=== PATIENT | female | born 1990 | race Asian ===

== ENCOUNTER 2017-06-14 08:18 | Emergency (ER) | payer OTHER ==
[2017-06-14 08:29] VITALS: BMI 31.8
--- NOTE | 2017-06-14 08:59 | PDOC ---
Attending Attestation - Resident Resident Name: Jose Manuel Johnson - ED Attending Attestation I have performed the following: I have examined & evaluated the patient, The case was reviewed & discussed with the resident, I agree w/resident's findings & plan, Exceptions are as noted - HPI HPI: 06/14/17 13:41 26y F presenting with back pain after being struck by a shoping cart at [employer] yesterday. Pt also endorsed feeling dizzy after it happened. Pain seemed worse when she woke up today in the L lower back. no assicated fever/chillls, numbness/tingling/weakness. Pt als onoticed some vaginal bleeding this AM, pt states she had a positive home test last week. labs reviewed here and pt is not pregent pts exam noted for mild parapsinal tenderness in the lumbar region no mdilne tenderness abd soft nontender pt given toradol for pain control . pt feeling improved will [place] chaney fu - Physicial Exam PE: 06/15/17 17:09 see above - Medical Decision Making 06/15/17 17:09 see above
[2017-06-14 09:23] LABS: BASOPHIL 0.6 % (0-2.0); MCH 25.8 pg (25.7-33.7); MEAN CELL VOLUME 78.2 fl (80-96); MEAN PLT VOLUME 7.6 fl (7.5-11.1); NEUTROPHILS 69.5 % (42.8-82.8); PLATELET COUNT 314 K/MM3 (134-434); RDW 12.9 % (11.6-15.6)
--- NOTE | 2017-06-14 09:32 | PDOC ---
History of Present Illness - General Chief Complaint: Vaginal Bleeding Stated Complaint: DIZZINESS/Vaginal bleeding possibly Time Seen by Provider: 06/14/17 08:27 History Source: Patient Exam Limitations: No Limitations - History of Present Illness Travel History: No Initial Comments: 06/14/17 09:21 26F with pmh of chronic anemia on iron supplements and vertigo present to the ED with gross and heavy vaginal bleed since she woke up this am after being accidentally struck by a cart in the lower back with significant force which also triggered her vertigo. The patient took a test last week which was positive. Last menses were April 24, 7 weeks ago. The patient claims the bleeding hasn't stopped. No products of conception noticed. No care as of yet. Patient is [id number] Past History - Past Medical History Allergies/Adverse Reactions: Allergies Allergy/AdvReac Type Severity Reaction Status Date / Time shellfish derived Allergy Verified 06/14/17 08:23 Home Medications: Ambulatory Orders NK [No Known Home Medication] 10/20/16 Anemia: Yes Other medical history: VERTIGO - Surgical History Abdominal Surgery: Yes (ruptured ovarian cyst) - Reproductive History Is Patient Now?: Yes - Psycho/Social/Smoking Cessation Hx Suicidal Ideation: No Smoking History: Never smoked Information on smoking cessation initiated: No Hx Alcohol Use: No Drug/Substance Use Hx: No Substance Use Type: None Abd/GI Specific PMHX - Complaint Specific PMHX Colitis: No Diverticulitis: No Gall Bladder Disease: No Review of Systems - Review of Systems Able to Perform ROS?: Yes Constitutional: No: Chills, Diaphoresis, Fever, Loss of Appetite HEENTM: No: Symptoms Reported, Blurred Vision, Recent change in vision, Ear Discharge Respiratory: No: Symptoms reported, Cough, Orthopnea, Shortness of Breath Cardiac (ROS): Yes: Lightheadedness. No: Symptoms Reported, Syncope ABD/GI: No: Abd. Pain w/ defecation, Constipated, Diarrhea, Rectal Bleeding : No: Symptoms Reported Musculoskeletal: Yes: Back Pain Integumentary: No: Symptoms Reported Neurological: Yes: Headache, Dizziness Hematologic/Lymphatic: Yes: Anemia *Physical Exam - Vital Signs Last Vital Signs Temp Pulse Resp BP Pulse Ox 98.7 F 83 18 131/74 100 06/14/17 08:21 06/14/17 08:21 06/14/17 08:21 06/14/17 08:21 06/14/17 08:21 - Physical Exam General Appearance: Yes: Nourished, Appropriately Dressed HEENT: positive: EOMI, SHIRA Neck: positive: Normal Thyroid. negative: Tender Respiratory/Chest: positive: Normal Breath Sounds. negative: Respiratory Distress Cardiovascular: positive: Regular Rhythm, Regular Rate, S1, S2 Female Pelvic Exam: positive: discharge, vaginal bleeding (external genitalia shows heavy gross blood at the introitus, vaginal vault and posterior fornix. Cervix is pale and swollen with yellowish/clear mucus discharge. Uterus is slightly tender. No mass palpated.) Procedures - Consent Consent obtained: From Patient ED Treatment Course - LABORATORY CBC & Chemistry Diagram: 06/14/17 08:50 06/14/17 08:50 - RADIOLOGY Radiology Studies Ordered: Category Date Time Status US(SINGLE) [US] Stat Ultrasound 06/14/17 08:46 Ordered Medical Decision Making - Medical Decision Making 06/14/17 09:43 26F pmh of anemia, presents with 7week and vaginal bleed following being hit by a cart in lower back. perlvic exam showed heavy gross blood in the posterior fornix and mucous discharge from a swollen closed cervix. ordered type and cross, cbc, cmp beta-HCG and executive vice president of sales ultrasound to r/o . results pending. No identified on HCG or U/S despite last period April 24 PAtient still complains of back pain and headache. Feels a bit better on nsaid. Follow up with PCP or ophtalmologist to r/o pseudomotor cerebri 06/14/17 14:06 *DC/Admit/Observation/Transfer Diagnosis at time of Disposition: Vaginal bleeding, Back pain - Discharge Dispostion Disposition: HOME Admit: No - Patient Instructions Additional Instructions: Follow up with primary doctor.
[2017-06-14 10:01] LABS: ALBUMIN 4.3 g/dl (3.4-5.0); ALK PHOS 69 U/L (45-117); ANION GAP 6 (8-16); BILIRUBIN,TOTAL 0.6 mg/dL (0.2-1.0); CALCIUM 9.1 mg/dL (8.5-10.1); CO2 26 mmol/L (21-32); CREATININE 0.6 mg/dL (0.55-1.02); GLUCOSE,RANDOM 83 mg/dL (74-106); SGOT/AST 15 U/L (15-37); SGPT/ALT 16 U/L (12-78); TOT PROT 8.1 g/dl (6.4-8.2)
[2017-06-14] MEDS ORDERED: ACETAMINOPHEN 325 MG TABLET (FP) PO ONE (10:01)
[2017-06-14] MEDS ORDERED: ACETAMINOPHEN 325 MG TABLET (FP) ONE (11:25)
[2017-06-14 11:57] LABS: URINE APPEARANCE SLCLOUDY; URINE BILIRUBIN NEGATIVE (NEGATIVE); URINE BLOOD 3+ (NEGATIVE); URINE COLOR LTYELLOW; URINE GLUCOSE (UA) NEGATIVE (NEGATIVE); URINE KETONE NEGATIVE (NEGATIVE); URINE LEUK ESTERASE TRACE (NEGATIVE); URINE NITRITE NEGATIVE (NEGATIVE); URINE UROBILINOGEN NEGATIVE mg/dL (0.2-1.0)
[2017-06-14 11:58] LABS: URINE PROTEIN 1+ (NEGATIVE)
[2017-06-14 12:05] LABS: URINE RBC 1853 /hpf (0-3); URINE WBC 5 /hpf (3-5)
[2017-06-14] MEDS ORDERED: KETOROLAC TROMETHAMINE 30 MG/1 ML VIAL IVPUSH ONE (12:11)
[2017-06-14] MEDS ORDERED: KETOROLAC TROMETHAMINE 30 MG/1 ML VIAL ONE (12:27)
[2017-06-14 14:34] VITALS: BP 124/68; PULSE 75; TEMP 98.6
== END 2017-06-14 14:39 | disposition home or self-care (01) ==
LOC: JER 08:18
PROC: 3E0333Z Introduction of Anti-inflammatory into Peripheral Vein, Percutaneous Approach (ICD-10-PCS; principal; 2017-06-14)
DX: N93.9 Abnormal uterine and vaginal bleeding, unspecified (principal); M54.5 Low back pain; W20.8XXA Other cause of strike by thrown, projected or falling object, initial encounter; Y93.89 Activity, other specified; Y92.9 Unspecified place or not applicable; D64.9 Anemia, unspecified
CPT/HCPCS: 36415; 76817-TC; 80053; 81003; 81015; 84702; 84703; 85025; 86850; 86900; 86901; 99283-25

== ENCOUNTER 2017-09-03 08:19 | Emergency (ER) | payer OTHER ==
[2017-09-03 08:23] VITALS: BMI 31.7
--- NOTE | 2017-09-03 08:36 | PDOC ---
History of Present Illness - General Chief Complaint: Psychiatric Stated Complaint: CHEST PAIN, ANXIETY Time Seen by Provider: 09/03/17 08:33 - History of Present Illness Initial Comments: 09/03/17 08:35 Patient is a 27 year old female with PMH significant for depression, vertigo and anemia presenting with sob, chest pain, anxiety and dizziness since morning. Patient states the symptoms started when she arrived at work. Denies any new or inciting events but endorses significant social stressors including the health of her grandfather and similar symptoms in the past, including significant depression, when her grandmother . Chest pain is sharp, left sided, plueurtic, 7/10 and radiates to the back. The pain was proceeded by shortness of breath and palpitations that "felt like her heart was going to break out of her chest". After having the pain, the patient started feeling dizziness with the room is spinning around her but "different" than her normal vertigo. Endorses headache, sore throat, abdominal pain and constipation; denies recent surgeries, long trips, periods of immobility, leg pain, history of DVT. Patient has no history of heart disease. PCP: Tristan Past History - Past Medical History Allergies/Adverse Reactions: Allergies Allergy/AdvReac Type Severity Reaction Status Date / Time shellfish derived Allergy Verified 06/14/17 08:23 Home Medications: Ambulatory Orders NK [No Known Home Medication] 10/20/16 Anemia: Yes - Surgical History Abdominal Surgery: Yes (ruptured ovarian cyst) - Suicide/Smoking/Psychosocial Hx Smoking History: Current every day smoker Number of Cigarettes Smoked Daily: 1 Information on smoking cessation initiated: No Hx Alcohol Use: No Drug/Substance Use Hx: No Substance Use Type: None Review of Systems - Review of Systems Able to Perform ROS?: Yes Comments:: GEN: Denies fever, chills, recent illness HEENTM: Endorses sore throat, changes in vision; Denies neck pain, changes in hearing, ear pain, tinnitus Respiratory: Denies cough, wheezing, shortness of breath Cardiac: Denies chest pain, palpitations, lightheadedness, diaphoresis ABD/GI: Endorses abdominal pain, constipation; Denies nausea, vomiting, diarrhea : Denies dysuria, burning on urination, increased frequency of urination Musculoskeletal: Denies pain and swelling of muscles and joints Integumentary: Denies rashes, bruises Neurological: Endorses LEDEZMA, dizziness; Denies weakness, loss of consciousness, tingling, numbness Hematologic/Lymphatic: Denies anemia, easy bleeding, history of blood clots. Psych: Denies SI/SA All Other Systems Reviewed and Negative Is the patient limited Icelandic proficient: No *Physical Exam - Vital Signs Last Vital Signs Temp Pulse Resp BP Pulse Ox 98.9 F 115 H 19 138/78 99 09/03/17 08:21 09/03/17 08:21 09/03/17 08:21 09/03/17 08:21 09/03/17 08:21 - Physical Exam Comments: GENERAL: AAOx3, nourished and generally well appearing, sad and tearful, NAD HEAD: NCAT EYES: PERRLA, EOMI, sclera anicteric, conjunctiva mildly injected ENT: Auricles normal inspection, hearing grossly normal, nares patent, no nasal discharge, no congestion, oropharynx clear without exudates, MMM NECK: supple, normal ROM, no LAD, no JVD, no masses RESP: speaking in full sentences, lungs CTAB, symmetrical chest expansion, no respiratory distress HEART: tachycardic, regular rhythm, normal S1-S2, no MRG, peripheral pulses normal and equal bilaterally ABDOMEN: soft, NTND, nlBSx4, no guarding, no rebound, no masses MUSCULOSKELETAL: no CVA Tenderness EXTREMITIES: normal inspection, moving all extremities, full ROM, strength 5/5, sensation grossly intact NEUROLOGICAL: CN II-XII grossly intact, normal speech, normal gait, no focal sensorimotor deficits SKIN: warm, dry, normal turgor, no rashes or lesions noted. ED Treatment Course - LABORATORY CBC & Chemistry Diagram: 09/03/17 09:08 09/03/17 09:25 Medical Decision Making - Medical Decision Making 09/03/17 10:42 27 year old female with history of depression, anxiety and significant social stressors presenting with tachycardia, shortness of breath, chest pain, and dizziness for one day Ddx includes but is not limited to ACS, PE, anxiety, panic attack Patient will be evaluate with blood chemistries, cardiac enzymes and then monitored and reassessed in the ED. Patient will be screened for depretion and SI and counselled about outpatient psychiatric followup. Cannot R/O PE by perc due to tachycardia Wells 1.5 -> Low risk, +/- evaluation with d-dimer EKG: Sinus tachy (101), no st-elevation, intervals wnl Patient heartrate significantly improved from triage 09/03/17 11:16 CBC WBC 8.7 K/mm3 (4.0-10.0) 09/03/17 09:08 RBC 4.79 M/mm3 (3.60-5.2) 09/03/17 09:08 Hgb 12.3 GM/dL (10.7-15.3) 09/03/17 09:08 Hct 37.8 % (32.4-45.2) 09/03/17 09:08 MCV 78.9 fl (80-96) L 09/03/17 09:08 MCH 25.6 pg (25.7-33.7) L 09/03/17 09:08 MCHC 32.4 g/dl (32.0-36.0) 09/03/17 09:08 RDW 13.3 % (11.6-15.6) 09/03/17 09:08 Plt Count 313 K/MM3 (134-434) 09/03/17 09:08 MPV 7.7 fl (7.5-11.1) 09/03/17 09:08 Neutrophils % 69.5 % (42.8-82.8) 09/03/17 09:08 Lymphocytes % 23.5 % (8-40) 09/03/17 09:08 Monocytes % 5.9 % (3.8-10.2) 09/03/17 09:08 Eosinophils % 0.5 % (0-4.5) 09/03/17 09:08 Basophils % 0.6 % (0-2.0) 09/03/17 09:08 Reviewed and non concerning CMP Sodium 138 mmol/L (136-145) 09/03/17 09:25 Potassium 3.9 mmol/L (3.5-5.1) 09/03/17 09:25 Chloride 104 mmol/L (98-107) 09/03/17 09:25 Carbon Dioxide 24 mmol/L (21-32) 09/03/17 09:25 Anion Gap 10 (8-16) 09/03/17 09:25 BUN 14 mg/dL (7-18) 09/03/17 09:25 Creatinine 0.5 mg/dL (0.55-1.02) L 09/03/17 09:25 Creat Clearance w eGFR > 60 (>60) 09/03/17 09:25 Random Glucose 69 mg/dL (74-106) L 09/03/17 09:25 Calcium 8.6 mg/dL (8.5-10.1) 09/03/17 09:25 Total Bilirubin 0.6 mg/dL (0.2-1.0) 09/03/17 09:25 AST 13 U/L (15-37) L 09/03/17 09:25 ALT 17 U/L (12-78) 09/03/17 09:25 Alkaline Phosphatase 67 U/L (45-117) 09/03/17 09:25 Creatine Kinase 89 IU/L (26-192) 09/03/17 09:25 Troponin I < 0.02 ng/ml (0.00-0.05) 09/03/17 09:25 Total Protein 7.8 g/dl (6.4-8.2) 09/03/17 09:25 Albumin 4.0 g/dl (3.4-5.0) 09/03/17 09:25 Reassuring cardiac enzymes Glucose consistent with patient claim of not eating today Urine Test Results Urine Color Yellow 09/03/17 09:08 Urine Appearance Slcloudy 09/03/17 09:08 Urine pH 6.0 (5.0-8.0) 09/03/17 09:08 Urine Protein Negative (NEGATIVE) 09/03/17 09:08 Urine Glucose (UA) Negative (NEGATIVE) 09/03/17 09:08 Urine Ketones Negative (NEGATIVE) 09/03/17 09:08 Urine Blood Negative (NEGATIVE) 09/03/17 09:08 Urine Nitrite Negative (NEGATIVE) 09/03/17 09:08 Urine Bilirubin Negative (NEGATIVE) 09/03/17 09:08 Non concerning 09/03/17 11:19 Repeat vitals were reassuring and wnl I discussed the results of testing with the patient and the importance of managing stress in her life. Provided some suggestions such as having someone she felt comfortable talking with, improvements in her diet, exercise and the use of mindfulness. I also instructed her to call her PCP tomorrow to discuss possible treatment for her depression and to request a referral for outpatient psychiatric therapy. Patient acknowledged her understanding and voiced agreement with this plan. She states that she is not currently having any thoughts of hurting herself or anyone else and promised me she would return to the ED if she started having any of these thoughts. *DC/Admit/Observation/Transfer Diagnosis at time of Disposition: Anxiety and depression - Discharge Dispostion Disposition: HOME Condition at time of disposition: Improved Admit: No - Referrals Referrals: STAFF,NOT ON [Primary Care Provider] - - Patient Instructions Printed Discharge Instructions: DI for Depression -- Adult, DI for Anxiety -- Adult Additional Instructions: Please call your doctor at the [facility] today and make an appointment for tomorrow. Discuss with them options for treating your depression and anxiety and the possibility of getting a referral to a therapist Please return to the emergency department if you start feeling depressed to the point where you feel life is worthless or you have any thoughts of hurting yourself. If you do not feel safe or are unable to make it to the emergency department please call 911 immediately. Remember that it is important for your health to eat a healthy diet. This can often help with our moods even if we do not feel hungry. Mild exercise can also help with improving mood and reducing stress. I wish you the best and hope things start getting better. - Post Discharge Activity Forms/Work/School Notes: Back to Work
[2017-09-03 09:20] LABS: BASOPHIL 0.6 % (0-2.0); EOSINOPHIL 0.5 % (0-4.5); MCH 25.6 pg (25.7-33.7); MCHC 32.4 g/dl (32.0-36.0); MEAN CELL VOLUME 78.9 fl (80-96); MEAN PLT VOLUME 7.7 fl (7.5-11.1); NEUTROPHILS 69.5 % (42.8-82.8); PLATELET COUNT 313 K/MM3 (134-434); RDW 13.3 % (11.6-15.6); WHITE BLOOD COUNT 8.7 K/mm3 (4.0-10.0)
[2017-09-03] MEDS ORDERED: SODIUM CHLORIDE 1,000 ML IV STA (09:26)
[2017-09-03] MEDS ORDERED: ACETAMINOPHEN 325 MG TABLET (FP) PO ONE (09:28)
--- NOTE | 2017-09-03 10:03 | PDOC ---
Attending Attestation - Resident Resident Name: Abhilash Hernandez - ED Attending Attestation I have performed the following: I have examined & evaluated the patient, The case was reviewed & discussed with the resident, I agree w/resident's findings & plan, Exceptions are as noted - HPI HPI: 09/03/17 09:48 27 yo F h/o depression (5-7 years ago), anxiety who presents with shortness of breath, dizziness and chest pain Has social stressors related to grandfather's recent illness and 3 miscarriages Pt feels short of breath and has had chest pain Pain is sharp, 7/10, Left side, radiating, pleuritic Worse with laying down (+) depression, no SI, no HI 09/03/17 10:06 09/03/17 10:07 - Physicial Exam PE: 09/03/17 10:07 GENERAL: The patient is in no acute distress. LUNGS: Breath sounds equal, clear to auscultation bilaterally. No wheezes, and no crackles. HEART: Tachycardiac, regular rhythm, normal S1 and S2 without murmur ABDOMEN: Soft, nontender - Medical Decision Making 09/03/17 10:08 27-year-old female presented to emergency department with chest pain, shortness of breath in the setting of multiple social stressors and anxiety. Differential diagnosis includes but is not limited to panic attack, anxiety attack,less likely PE Low risk Wells Unable to do PERC score as pt is tachycardiac Will do basic labs and d dimer Will re assess
[2017-09-03 10:16] LABS: URINE APPEARANCE SLCLOUDY; URINE BILIRUBIN NEGATIVE (NEGATIVE); URINE BLOOD NEGATIVE (NEGATIVE); URINE COLOR YELLOW; URINE GLUCOSE (UA) NEGATIVE (NEGATIVE); URINE KETONE NEGATIVE (NEGATIVE); URINE NITRITE NEGATIVE (NEGATIVE); URINE PROTEIN NEGATIVE (NEGATIVE); URINE UROBILINOGEN NEGATIVE mg/dL (0.2-1.0)
[2017-09-03 10:26] LABS: ANION GAP 10 (8-16); CALCIUM 8.6 mg/dL (8.5-10.1); CO2 24 mmol/L (21-32); GLUCOSE,RANDOM 69 mg/dL (74-106)
[2017-09-03 10:29] LABS: BILIRUBIN,TOTAL 0.6 mg/dL (0.2-1.0); CPK 89 IU/L (26-192); CREATININE 0.5 mg/dL (0.55-1.02); SGOT/AST 13 U/L (15-37); SGPT/ALT 17 U/L (12-78); TOT PROT 7.8 g/dl (6.4-8.2)
[2017-09-03 10:37] LABS: ALK PHOS 67 U/L (45-117); TROPONIN I < 0.02 ng/ml (0.00-0.05)
[2017-09-03 11:40] VITALS: BP 124/72; PULSE 74; TEMP 98.3
[2017-09-03 12:41] LABS: URINE LEUK ESTERASE TRACE (NEGATIVE)
--- NOTE | 2017-09-03 22:07 | EKG ---
Test Reason : Blood Pressure : / mmHG Vent. Rate : 101 BPM Atrial Rate : 101 BPM P-R Int : 136 ms QRS Dur : 080 ms QT Int : 354 ms P-R-T Axes : 034 030 040 degrees QTc Int : 459 ms SINUS TACHYCARDIA OTHERWISE NORMAL ECG NO PREVIOUS ECGS AVAILABLE BASELINE ARTIFACT CLINICAL CORRELATION IS RECOMMENDED Confirmed by MADDY VILLARREAL MD ([id number]) on 09/03/2017 10:06:39 PM Referred By: Confirmed By:MADDY VILLARREAL MD
== END 2017-09-03 12:03 | disposition home or self-care (01) ==
LOC: JER 08:19 → SUPCPDRO 08:19 → JER 12:03
PROC: 3E0337Z Introduction of Electrolytic and Water Balance Substance into Peripheral Vein, Percutaneous Approach (ICD-10-PCS; principal; 2017-09-03)
DX: F41.9 Anxiety disorder, unspecified (principal); F32.9 Major depressive disorder, single episode, unspecified; D64.9 Anemia, unspecified; Z91.013 Allergy to seafood
CPT/HCPCS: 36415; 71010-TC; 80053; 81003; 81015; 82550; 84484; 84703; 85025; 93005; 93010; 99284-25

== ENCOUNTER 2017-09-12 15:17 | Inpatient (IN) | payer OTHER ==
[2017-09-12 15:23] VITALS: BMI 31.7
[2017-09-12] MEDS ORDERED: SODIUM CHLORIDE 1,000 ML IV STA (16:25)
[2017-09-12] MEDS ORDERED: ONDANSETRON 4 MG/2 ML VIAL IVPUSH ONE (16:25)
--- NOTE | 2017-09-12 16:29 | PDOC ---
History of Present Illness - General Chief Complaint: Pain, Acute Stated Complaint: ABD PAIN, NAUSEA Time Seen by Provider: 09/12/17 15:55 Past History - Past Medical History Allergies/Adverse Reactions: Allergies Allergy/AdvReac Type Severity Reaction Status Date / Time shellfish derived Allergy Verified 09/12/17 15:19 Home Medications: Ambulatory Orders NK [No Known Home Medication] 10/20/16 Anemia: Yes - Surgical History Abdominal Surgery: Yes (ruptured ovarian cyst) - Suicide/Smoking/Psychosocial Hx Smoking History: Former smoker Have you smoked in the past 12 months: No Number of Cigarettes Smoked Daily: 1 Information on smoking cessation initiated: No Hx Alcohol Use: No Drug/Substance Use Hx: No Substance Use Type: None *Physical Exam - Vital Signs Last Vital Signs Temp Pulse Resp BP Pulse Ox 98.3 F 95 H 19 130/82 98 09/12/17 15:19 09/12/17 15:19 09/12/17 15:19 09/12/17 15:19 09/12/17 15:19
[2017-09-12] MEDS ORDERED: ONDANSETRON 4 MG/2 ML VIAL ONE ×2 (16:34→23:34)
--- NOTE | 2017-09-12 16:49 | PDOC ---
History of Present Illness - General Chief Complaint: Pain, Acute Stated Complaint: ABD PAIN, NAUSEA Time Seen by Provider: 09/12/17 15:55 History Source: Patient Exam Limitations: No Limitations - History of Present Illness Initial Comments: 09/12/17 16:44 27 year old F with pmh of iron deficiency anemia presenting with lower abdominal pain x 2 days. Pain is constant, bilateral, radiating to back, and cramping. Patient endorses chills, nausea, and pain with intercourse. Patient does not use protection. Has not had any hx of std's. Patient denies fever, vomiting, chest pain, sob, dysuria, hematuria, vaginal bleeding, discharge. Allergies: nkda Past surgical history: denies Social history: denies PMD - Dr. Hudson ([employer]) 09/12/17 16:50 Past History - Past Medical History Allergies/Adverse Reactions: Allergies Allergy/AdvReac Type Severity Reaction Status Date / Time shellfish derived Allergy Verified 09/12/17 15:19 Home Medications: Ambulatory Orders Ibuprofen [Motrin -] 600 mg PO QID #28 tablet 09/12/17 Anemia: Yes - Surgical History Abdominal Surgery: Yes (ruptured ovarian cyst) - Suicide/Smoking/Psychosocial Hx Smoking History: Former smoker Have you smoked in the past 12 months: No Number of Cigarettes Smoked Daily: 1 Information on smoking cessation initiated: No Hx Alcohol Use: No Drug/Substance Use Hx: No Substance Use Type: None Review of Systems - Review of Systems Able to Perform ROS?: Yes Comments:: 09/12/17 16:49 GENERAL/CONSTITUTIONAL: No fever or chills. No weakness. HEAD, EYES, EARS, NOSE AND THROAT: No change in vision. No ear pain or discharge. No sore throat. CARDIOVASCULAR: No chest pain or shortness of breath RESPIRATORY: No cough, wheezing, or hemoptysis. GASTROINTESTINAL: + nausea, No vomiting, diarrhea or constipation. +abdominal pain, +pain upon intercourse GENITOURINARY: No dysuria, frequency, or change in urination. MUSCULOSKELETAL: No joint or muscle swelling or pain. No neck or back pain. SKIN: No rash NEUROLOGIC: No headache, vertigo, loss of consciousness, or change in strength/ sensation. ENDOCRINE: No increased thirst. No abnormal weight change HEMATOLOGIC/LYMPHATIC: No anemia, easy bleeding, or history of blood clots. ALLERGIC/IMMUNOLOGIC: No hives or skin allergy. *Physical Exam - Vital Signs Last Vital Signs Temp Pulse Resp BP Pulse Ox 98.3 F 95 H 19 130/82 98 09/12/17 15:19 09/12/17 15:19 09/12/17 15:19 09/12/17 15:19 09/12/17 15:19 - Physical Exam Comments: 09/12/17 16:49 GENERAL: Awake, alert, and fully oriented, in no acute distress HEAD: No signs of trauma, normocephalic, atraumatic EYES: PERRLA, EOMI, sclera anicteric, conjunctiva clear ENT: Auricles normal inspection, hearing grossly normal, nares patent, oropharynx clear without exudates. Moist mucosa NECK: Normal ROM, supple, no lymphadenopathy, JVD, or masses LUNGS: No distress, speaks full sentences, clear to auscultation bilaterally HEART: Regular rate and rhythm, normal S1 and S2, no murmurs, rubs or gallops, peripheral pulses normal and equal bilaterally. ABDOMEN: Soft, +suprapubic tenderness, +rlq and epigastric tenderness, normoactive bowel sounds. No guarding, no rebound. No masses EXTREMITIES: Normal inspection, Normal range of motion, no edema. No clubbing or cyanosis. NEUROLOGICAL: Cranial nerves II through XII grossly intact. Normal speech, normal gait, no focal sensorimotor deficits SKIN: Warm, Dry, normal turgor, no rashes or lesions noted. Pelvic: +CMT ED Treatment Course - LABORATORY CBC & Chemistry Diagram: 09/12/17 16:50 09/12/17 16:50 Medical Decision Making - Medical Decision Making 09/12/17 16:50 27 year old F with pmh of iron deficiency anemia presenting with lower abdominal pain x 2 days. Plan: CBC, CMP, Lipase, UA, Ucx, Upreg, sx control, G/C culture 09/12/17 17:27 Upreg +, TVUS pending, Beta HcG pending Pt admitted to Dr. Sandhu *DC/Admit/Observation/Transfer Diagnosis at time of Disposition: Ectopic Qualifiers: Location of ectopic : ovarian Intrauterine status: without intrauterine Laterality: right Qualified Code(s): O00.201 - Right ovarian without intrauterine - Discharge Dispostion Disposition: HOME Condition at time of disposition: Good Admit: Yes - Prescriptions - Patient Instructions
[2017-09-12 16:56] LABS: BASOPHIL 0.5 % (0-2.0); EOSINOPHIL 0.8 % (0-4.5); MCH 25.8 pg (25.7-33.7); MCHC 33.2 g/dl (32.0-36.0); MEAN CELL VOLUME 77.8 fl (80-96); MEAN PLT VOLUME 7.6 fl (7.5-11.1); NEUTROPHILS 59.5 % (42.8-82.8); PLATELET COUNT 312 K/MM3 (134-434); RDW 13.2 % (11.6-15.6); WHITE BLOOD COUNT 10.8 K/mm3 (4.0-10.0)
[2017-09-12 17:18] LABS: ALBUMIN 3.8 g/dl (3.4-5.0); ANION GAP 6 (8-16); BILIRUBIN,TOTAL 0.3 mg/dL (0.2-1.0); CALCIUM 8.2 mg/dL (8.5-10.1); CO2 24 mmol/L (21-32); CREATININE 0.6 mg/dL (0.55-1.02); GLUCOSE,RANDOM 65 mg/dL (74-106); SGOT/AST 12 U/L (15-37); SGPT/ALT 17 U/L (12-78); TOT PROT 7.3 g/dl (6.4-8.2)
[2017-09-12 17:19] LABS: ALK PHOS 68 U/L (45-117)
--- NOTE | 2017-09-12 17:20 | PDOC ---
Attending Attestation - Resident Resident Name: Saroj Forbes - ED Attending Attestation I have performed the following: I have examined & evaluated the patient, The case was reviewed & discussed with the resident, I agree w/resident's findings & plan, Exceptions are as noted - HPI HPI: 09/12/17 17:20 27 y/o F with a PMHx of anemia presents to the ED with constant lower abdominal pain for two days. Patient describes the pain as crampy, and that it radiates to her back. She is currently sexually active, and does not use protection. She has a history of STDs in the past. Denies urinary complaints. Denies vaginal bleeding or discharge. Denies fever, chills, NVD. Denies any other complaints. A complete review of 10 out of 10 review of systems is taken and is negative apart from what is previously mentioned below and in the HPI. - Physicial Exam PE: 09/12/17 17:20 Vitals: Triage Vital signs reviewed General Appearance: no acute distress, well nourished well developed Head: Atraumatic Eyes: Pupils equal reactive round, extraocular movement intact Neck: Supple; No Nucal rigidity Chest Wall: Nontender Cardiac: Regular rate and rhythm, no murmurs, no rubs, no gallops Lungs: Clear to auscultation bilateral, good air movement bilaterally Abdomen: Soft, non distended, normal bowel sounds, minimal suprapubic tenderness Genitourinary: CMT Extremities: Full range of motion to all extremities, no cyanosis, clubbing, or edema Skin: Warm and dry, no rashes or lesions, no rash, no petechiae Neuro: AOX3; Cranial Nerves 2-12 grossly intact, Strength intact to all extremities, Sensation intact to all extremities, normal gait Psych: normal mood, normal affect - Medical Decision Making 09/12/17 17:21 Documentation prepared by Yari Rogers, acting as medical or surgical instrument maker for Chuck Quevedo MD. <Yari Rogers - Last Filed: 09/12/17 17:20> - Resident Resident Name: Saroj Forbes - ED Attending Attestation I have performed the following: I have examined & evaluated the patient, The case was reviewed & discussed with the resident, I agree w/resident's findings & plan, Exceptions are as noted - HPI HPI: 09/12/17 19:00 27 is on no significant past medical history 2 months with suprapubic and mild vaginismus on examination 09/12/17 19:01 - Physicial Exam PE: 09/12/17 19:01 Vitals: Triage Vital signs reviewed General Appearance: no acute distress, well nourished well developed, Head: Atraumatic, Cardiac: Regular rate and rhythym, no murmurs, no rubs, no gallops, Lungs: Clear to auscultation bilateral, good air movement bilaterally, Abdomen: Soft, non distended, normal bowel sounds, very mild suprapubic tenderness to palpation, no rebound no guarding Genitourinary: Mild vaginismus, no adnexal tenderness to palpation no CMT Extremities: Full range of motion to all extremities, no cyanosis, clubbing, or edema Skin: Warm and dry, no rashes or lesions, no rash, no petechiae - Medical Decision Making 09/12/17 19:00 Well appearing no apparent distress low suspicion for acute intra-abdominal pathology. We'll check labs urinalysis ultrasound reassessed. On examination he was also a slight white discharge is May simply represent a yeast infection. If ultrasound negative lab work and urinalysis unremarkable patient can be discharged Dr. Montez to f/u labs, US, and reasses 09/12/17 19: <Chuck Quevedo - Last Filed: 09/12/17 19:02>
[2017-09-12 17:23] LABS: URINE APPEARANCE SLCLOUDY; URINE BILIRUBIN NEGATIVE (NEGATIVE); URINE BLOOD NEGATIVE (NEGATIVE); URINE COLOR LTYELLOW; URINE GLUCOSE (UA) NEGATIVE (NEGATIVE); URINE KETONE NEGATIVE (NEGATIVE); URINE NITRITE NEGATIVE (NEGATIVE); URINE PROTEIN NEGATIVE (NEGATIVE); URINE UROBILINOGEN NEGATIVE mg/dL (0.2-1.0)
[2017-09-12] MEDS ORDERED: AZITHROMYCIN 1 GM PACKET PO ONE (18:38)
[2017-09-12] MEDS ORDERED: CEFTRIAXONE 250 MG in DEXTROSE 5%-WATER - 50 ML IVPB ONE (18:38)
[2017-09-12] MEDS ORDERED: CEFTRIAXONE 1 GM in DEXTROSE 5%-WATER - 50 ML IVPB ONE (18:50)
[2017-09-12] MEDS ORDERED: AZITHROMYCIN 500 MG TABLET ONE (18:51)
[2017-09-12] MEDS ORDERED: CEFTRIAXONE 50 ML ONE (18:51)
[2017-09-12 21:15] LABS: URINE LEUK ESTERASE 1+ (NEGATIVE)
[2017-09-12 21:38] LABS: URINE BACTERIA FEW /hpf (NEGATIVE)
[2017-09-12 22:45] LABS: INR 0.96 (0.82-1.09); PROTHROMBIN TIME (PATIENT) 10.9 SEC (9.98-11.88)
--- NOTE | 2017-09-12 22:47 | HP ---
Past Medical History - Primary Care Physician PCP:: Marko Sandhu - Admission Chief Complaint: pelvic pain History of Present Illness: 27 yo f with 2 days hx of pelvic pain, sono showed RT tubal ectopic with pole and heart, admitted for laparoscopic salpingectomy, risks associated with procedure discussed with patient, risks of infection, bleeding, injury to bowel , bladder, vessels, nerve , anesthesia risks, post op complication discussed ,all question answered, ulternatives and no tx discussed History Source: Patient Limitations to Obtaining History: No Limitations - Past Surgical History Hx Myomectomy: No Hx Transabdominal Cerclage: No - Smoking History Smoking history: Former smoker Have you smoked in the past 12 months: No Aproximately how many cigarettes per day: 1 - Alcohol/Substance Use Hx Alcohol Use: No - Social History History of Recent Travel: No Home Medications - Allergies Allergies/Adverse Reactions: Allergies Allergy/AdvReac Type Severity Reaction Status Date / Time shellfish derived Allergy Verified 09/12/17 15:19 - Home Medications Home Medications: Ambulatory Orders NK [No Known Home Medication] 10/20/16 Review of Systems - Review of Systems Constitutional: reports: Malaise Eyes: reports: No Symptoms HENT: reports: No Symptoms Neck: reports: No Symptoms Cardiovascular: reports: No Symptoms Respiratory: reports: No Symptoms Gastrointestinal: reports: Abdominal Pain, Indigestion Genitourinary: reports: Vaginal Bleeding Musculoskeletal: reports: No Symptoms Integumentary: reports: No Symptoms Neurological: reports: No Symptoms Hematology/Lymphatic: reports: No Symptoms Psychiatric: reports: No Symptoms Physical Exam-IT COMMUNICATIONS MANAGER Vital Signs: Vital Signs Temperature 98.6 F 09/12/17 22:04 Pulse Rate 77 09/12/17 22:04 Respiratory Rate 18 09/12/17 22:04 Blood Pressure 128/87 09/12/17 22:04 O2 Sat by Pulse Oximetry (%) 100 09/12/17 22:04 Constitutional: Yes: Well Nourished, No Distress, Calm Eyes: Yes: WNL, Conjunctiva Clear, EOM Intact HENT: Yes: WNL, Atraumatic, Normocephalic Neck: Yes: WNL, Supple, Trachea Midline Cardiovascular: Yes: WNL, Regular Rate and Rhythm Respiratory: Yes: WNL, Regular, CTA Bilaterally Gastrointestinal: Yes: WNL ...Rectal Exam: Yes: WNL Renal/: Yes: WNL Pelvis: Yes: Tenderness External Genitalia: Yes: Normal Internal Exam Deferred: No Vaginal Exam: Yes: Normal Cervix: Yes: Normal, Bleeding Uterus: Yes: Normal Adnexa: Tender: Right, Left Breast(s): Yes: WNL Musculoskeletal: Yes: WNL Extremities: Yes: WNL Integumentary: Yes: WNL Neurological: Yes: WNL, Alert, Oriented ...Motor Strength: WNL Psychiatric: Yes: WNL, Alert, Oriented Problem List - Problem (1) Right tubal without intrauterine Code(s): O00.101 - RIGHT TUBAL WITHOUT INTRAUTERINE (2) Pelvic pain Code(s): R10.2 - PELVIC AND PERINEAL PAIN Assessment/Plan laparoscopic rt salpingectomy, possible laparotomy, D&C, rba discussed
[2017-09-12 22:48] LABS: ACTIVATED PTT 32.7 SECONDS (26.9-34.4)
[2017-09-12] MEDS ORDERED: BUPIVACAINE HCL/PF 0.5% (5MG/ML) 10 ML VIAL ONE (22:50)
[2017-09-12] MEDS ORDERED: PROPOFOL 20 ML ONE (23:01)
[2017-09-12] MEDS ORDERED: ROCURONIUM BROMIDE 50 MG/5 ML VIAL ONE (23:02)
[2017-09-12] MEDS ORDERED: MIDAZOLAM HCL 2 MG/2 ML SINGLE DOSE VIAL ONE (23:02)
[2017-09-12] MEDS ORDERED: LIDOCAINE HCL/PF 2% SDV 5ML VIAL ONE (23:04)
[2017-09-12] MEDS ORDERED: DEXAMETHASONE SOD PHOSPHATE 4 MG/1 ML VIAL ONE (23:34)
[2017-09-13] MEDS ORDERED: KETOROLAC TROMETHAMINE 30 MG/1 ML VIAL ONE (00:03)
[2017-09-13] MEDS ORDERED: GLYCOPYRROLATE 0.2 MG/1 ML VIAL ONE (00:03)
[2017-09-13] MEDS ORDERED: NEOSTIGMINE METHYLSULFATE 0.5 MG/ML - 10 ML MDV ONE (00:03)
[2017-09-13] MEDS ORDERED: ONDANSETRON 4 MG/2 ML VIAL IVPUSH PRN (00:26)
[2017-09-13] MEDS ORDERED: oxyCODONE HCL 5 MG TABLET PO PRN (00:26)
[2017-09-13] MEDS ORDERED: IBUPROFEN 800 MG/8 ML IJ IVPB PRN (00:26)
[2017-09-13] MEDS ORDERED: ELECTROLYTE-148 SOLN 1,000 ML IV SCH (00:30)
[2017-09-13] MEDS ORDERED: PROMETHAZINE HCL 25 MG/1 ML VIAL IVPUSH PRN (00:35)
[2017-09-13] MEDS ORDERED: PROMETHAZINE HCL 25 MG/1 ML VIAL ONE (00:41)
[2017-09-13] MEDS ORDERED: FLU VACC QS2017-18 36MOS UP/PF 60 MCG/0.5 ML SYRINGE IM ONE (10:00)
[2017-09-13] MEDS: IBUPROFEN 600 MG TABLET (FP) PO PRN ×2 (10:53→15:48)
--- NOTE | 2017-09-13 12:36 | PN ---
Progress Note (short form) - Note Progress Note: Anesthesia POD#1 S/P Laparoscopic Right Salpingectomy under GA VSS, no N/V,no pain issues, eating well. Radha Dick MD.
[2017-09-13] MEDS ORDERED: BISACODYL 10 MG SUPP.RECT RC ONE (15:45)
[2017-09-13 23:09] VITALS: BP 110/67; PULSE 76; TEMP 98.3
--- NOTE | 2017-09-14 08:23 | OP ---
DATE OF OPERATION: 09/13/2017 PREOPERATIVE DIAGNOSIS: Right tubal ectopic . POSTOPERATIVE DIAGNOSIS: Right tubal ectopic . No ectopic was seen. Rule out missed . PROCEDURE: Dilation and curettage, laparoscopy. SURGEON: Marko Sandhu MD HEALTH ANALYST: PAUL Thomas ANESTHESIA: General. ANESTHESIOLOGIST: Dr. Sheehan ESTIMATED BLOOD LOSS: 25 mL. DESCRIPTION OF PROCEDURE: The patient was taken to the operating room under adequate general anesthesia in dorsal lithotomy position. Examination under anesthesia revealed external genitalia to be normal. Vagina was normal. Cervix was clean. No gross lesions. Uterus was normal size, anteverted. Adnexa, no masses were palpable. With a weighted speculum in the vagina, anterior lip of the cervix was grasped with a single-tooth tenaculum. The cervix was slightly dilated with a Hegar dilator then with a smooth curette, the uterine cavity was gently curetted. Then Hulka was inserted into the uterine cavity for manipulation. The patient was prepped and draped for a . A small infraumbilical skin incision was made. Veress needle was introduced. Pneumoperitoneum was established then a 5-mm trocar was introduced through the umbilical area. The scope was introduced. Then under direct vision, a 10-mm trocar was introduced through the left hypergastric area. Probe was introduced. Upper abdomen was checked. Diaphragm and liver was normal. Pelvic organ and uterus appeared to be normal. There was a small amount of ascitic fluid in the posterior cul-de-sac seen. Bladder was normal. Right tube and ovary appeared to be normal. Right tube had a corpus luteum cyst. The left ovary and tube also was examined carefully and were normal. No evidence of ectopic was seen. Ascitic fluid was suctioned then abdomen was emptied. All of the gastric instruments were withdrawn. Left hypogastric area was sutured with interrupted suture of 0 Vicryl then the skin was closed with 3-0 Biosyn subcuticular suture. Then the right port was closed with 3-0 Vicryl then with interrupted suture of 3-0 Biosyn. The patient tolerated the procedure well and left the OR in good condition. Adair [id number]
--- NOTE | 2017-09-16 10:06 | PATH ---
Surgical Pathology Report Patient Name: JANETTE MEJIA [facility]. Rec. #: [id number] /Age/Gender: 1990 (Age: 27) / F Account: [id number] Location: [facility] OBS/PARTS ANALYST Taken: 09/12/2017 Received: 09/13/2017 Reported: 09/16/2017 Physicians: Marko Sandhu M.D. Specimen(s) Received ENDOMETRIAL CURETTINGS Clinical History Ectopic Final Diagnosis ENDOMETRIUM, CURETTING: CHORIONIC VILLI CONSISTENT WITH PRODUCTS OF CONCEPTION, ALONG WITH DECIDUA AND HYPERSECRETORY ENDOMETRIUM. Comment: Recommend correlation with clinical and radiologic findings and follow up as clinically indicated. Electronically Signed Arturo Andrea M.D. Gross Description Received in formalin labeled "endometrial curettings," is a 4.3 x 2.5 x 0.4 cm aggregate of lyons soft tissue fragments admixed with blood clot. The formalin is filtered and the specimen is entirely submitted in 4 cassettes. /09/13/2017 [facility]09/13/2017
== END 2017-09-13 21:35 | disposition home or self-care (01) | DRG 777 ==
LOC: JER 15:17 → J3W 21:16
PROVIDERS: ADMIT Obstetrics & Gynecology; ATTEND Obstetrics & Gynecology
PROC: 10D28ZZ Extraction of Products of Conception, Ectopic, Via Natural or Artificial Opening Endoscopic (ICD-10-PCS; principal; 2017-09-13)
DX: O00.101 Right tubal pregnancy without intrauterine pregnancy (principal); R10.2 Pelvic and perineal pain; Z87.891 Personal history of nicotine dependence; D50.8 Other iron deficiency anemias
CPT/HCPCS: 36415; 76817-TC; 80053; 81003; 81015; 83690; 84702; 84703; 85025; 85610; 85730; 86850; 86900; 86901; 87086; 87491; 87591; 88305-TC; 90686; 94760; 99285-25; G0008